=== PATIENT | male | born 1965 | race Two or more races ===

== ENCOUNTER 2020-02-08 05:27 | Emergency (ER) | payer BC ==
[~2020-02-08] VITALS: Ht 162.6 cm; Wt 61.7 kg
[2020-02-08] MEDS ORDERED: CLONAZEPAM1 MG (05:52)
[2020-02-08] MEDS ORDERED: SEROQUEL XR200 MG (05:52)
[2020-02-08] MEDS ORDERED: NORVASC5 MG (05:52)
[2020-02-08] MEDS ORDERED: LIPITOR20 MG (05:53)
[2020-02-08] MEDS ORDERED: PAXIL30 MG (05:53)
[2020-02-08] MEDS ORDERED: ABILIFY MYCITE5 MG (05:54)
[2020-02-08] MEDS ORDERED: PAXIL30 MG PO (06:25)
[2020-02-08] MEDS ORDERED: CLONAZEPAM1 MG PO (06:25)
[2020-02-08] MEDS ORDERED: NORVASC5 MG PO (06:25)
== END 2020-02-08 06:31 | disposition home or self-care (01) ==
LOC: ER 05:27
DX: F41.8 Other specified anxiety disorders (principal); G40.802 Other epilepsy, not intractable, without status epilepticus